=== PATIENT | male | born 1970 | race African-American/Black ===

== ENCOUNTER 2018-04-28 01:12 | Emergency (ER) | payer MEDICAID, OTHER ==
[~2018-04-28] VITALS: Ht 180.3 cm; Wt 96.2 kg
[2018-04-28 04:59] VITALS: BP 150/94
[2018-04-28] MEDS ORDERED: METHOCARBAMOL 500 MG TAB PO ONE (06:45)
[2018-04-28] MEDS ORDERED: KETOROLAC TROMETH 60MG/2ML VIAL IM ONE (06:45)
[2018-04-28] MEDS ORDERED: InsuLIN REG 1unit/0.01ml Soln (100units/ml) SC ONE (07:15)
== END 2018-04-28 08:10 | disposition home or self-care (01) ==
LOC: ER 01:14
CPT/HCPCS: 72100 ×2; 96372 ×2; 99283; J1885 ×2